=== PATIENT | male | born 1990 | race African-American/Black ===

== ENCOUNTER 2020-09-30 18:51 | Emergency (ER) | payer MEDICAID ==
[~2020-09-30] VITALS: Ht 180.3 cm; Wt 90.7 kg
--- NOTE | 2020-09-30 19:03 | Emergency Room Report ---
History of Present Illness General Chief Complaint: Lower Extremity Injury Source: Patient Present Illness HPI Disclaimer: Please note that this report is being documented using DRAGON technology. This can lead to erroneous entry secondary to incorrect interpretation by the dictating instrument. HPI: 30-year-old male evaluation of right knee pain. The patient states he tripped and fell outside of convenience store falling onto his patella in a twisting injury. Did not hear a pop but noted swelling over the medial aspect. He reports diffuse aching. Difficulty bearing weight. No prior history of injury or surgery to this knee. Has not taken anything prior to arrival. No injury to the head or other injuries reported. No other complaints. 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 EOMI. Resp: Normal work of breathing Skin: Intact. No abrasions, laceration or rash over the exposed skin MSK: Normal tone and bulk. Moving all extremities. Moderate edema around the knee over the medial aspect. Tenderness to palpation over patella, proximal tibia and proximal fibula. No palpable deformity. Patella is anatomic position. Pain with extension and flexion. No laxity. Neuro: Awake and alert. Mentating appropriately Medical Decision Making Diagnostic Impression: Primary Impression: Knee pain ER Course 30-year-old male presents for evaluation of knee pain after a fall. No evidence of bony trauma on x-ray. I am concerned the patient either has a meniscal or ligamental injury. Knee immobilizer provided as well as crutches. Pain medication and care instructions provided. Refer to outpatient orthopedic surgery for further evaluation. Discussed reasons to return to the ED. He understands and agrees with this treatment plan. Other X-Ray Diagnostic Results Other X-Ray Diagnostic Results : X-Ray ordered: Right knee # of Views/Limited Vs Complete: Complete Indication: Pain EP Interpretation: Yes Interpretation: no dislocation, no fractures, other - Mild soft tissue swelling Impression: Other - No bony trauma. Soft tissue swelling present Electronically Signed by: Electronically signed by Dr. Steffen Nielsen MD Last Vital Signs Date Time Temp Pulse Resp B/P (MAP) Pulse Ox O2 Delivery O2 Flow Rate FiO2 09/30/20 18:54 98.6 80 16 132/74 (93) 99 Room Air Disposition: HOME, SELF-CARE Condition: Stable Scripts Hydrocodone Bit/Acetaminophen 5-325* (NORCO 5-325 TABLET*) 1 Each Tablet 1 TAB ORAL Q6H PRN for FOR PAIN, #10 TAB 0 Refills Prov: Steffen Nielsen MD 09/30/20 Ibuprofen* (MOTRIN*) 600 Mg Tablet 600 MG ORAL Q6H PRN for For Pain, #30 TAB 0 Refills Prov: Steffen Nielsen MD 09/30/20 Steffen Nielsen MD Sep 30, 2020 19:03
--- NOTE | 2020-09-30 19:10 | NUR ---
ED Nurse Note: pt was brought in by ambulance after calling 911 for falling in front of a convience store onto his knees. pt states he was ambulatory at time of incident and denies LOC. pt aao x 4 and ambulates with staedy gait. Will continue to monitor. awaiting ermd at bedside. awaiting further orders.
--- NOTE | 2020-09-30 19:12 | NUR ---
ED Nurse Note: ermd at bedside
[2020-09-30] MEDS ORDERED: HYDROcodone/Acetamin 7.5/325 tab ORAL ONE (19:15)
--- NOTE | 2020-09-30 19:15 | NUR ---
ED Nurse Note: all medications administered, pt tolerated well no ss of distress noted. will continue to monitor.
--- NOTE | 2020-09-30 19:17 | NUR ---
ED Nurse Note: pt taken to xray
[2020-09-30] MEDS ORDERED: NORCO 5-325 TA1 EAC1 ORAL (19:30)
[2020-09-30] MEDS ORDERED: IBUPROFEN600 M1 ORAL (19:30)
--- NOTE | 2020-09-30 19:30 | NUR ---
ED Nurse Note: digital product specialist at bedside for immobilizer and crutches
--- NOTE | 2020-09-30 19:35 | NUR ---
ED Nurse Note: ERMD at bedside
[2020-09-30 19:48] VITALS: BP 125/81
--- NOTE | 2020-09-30 19:48 | NUR ---
ER DISCHARGE NOTE: Patient is cleared to be discharged home with immobilizer and crutches per ERMD, pt is aox4, 98% on room air, with stable vital signs. pt was given dc and prescription instructions, pt was able to verbalize understanding, pt id band removed without complications. pt is able to ambulate with steady gait. pt took all belongings.
--- NOTE | 2020-10-01 19:00 | Diagnostic Imaging Report ---
Indication: Pain, trauma Technique: 3 views of the right knee Comparison: None Findings: No acute fracture. No dislocation. Joint spaces are preserved. No suprapatellar effusion Impression: Negative
== END 2020-09-30 19:48 | disposition home or self-care (01) ==
LOC: EDBD 18:51 → EMR 19:25
DX: M25.561 Pain in right knee (principal); W01.0XXA Fall on same level from slipping, tripping and stumbling without subsequent striking against object, initial encounter; Y93.01 Activity, walking, marching and hiking; Y92.480 Sidewalk as the place of occurrence of the external cause; Z72.0 Tobacco use
CPT/HCPCS: 73562; Z7502; 99283